=== PATIENT | female | born 1945 | race Caucasian/White ===

== ENCOUNTER 2017-09-16 14:20 | Emergency (ER) | payer MEDICARE, OTHER ==
[2017-09-16 15:45] LABS: Hematocrit 32.9 % (37.0-47.0); Hemoglobin 11.2 gm/dL (12.5-16.0); Mean Cell Volume 94.8 fl (78-100); Mean Corpuscular Hemoglobin 32.3 pg (27-31); Mean Platelet Volume 8.5 fl (6.0-9.5); Neutrophil # 5.4 K/mm3 (1.3-6.0); Neutrophil % 59.7 % (42-75.0); Platelet Count 313 K/mm3 (150-450); Red Blood Count 3.47 M/mm3 (4.2-5.4); Red Cell Distribution Width 13.6 % (11.5-14.0)
[2017-09-16 15:56] LABS: Prothrombin Time (Patient) 9.7 Seconds (9.0-11.0)
[2017-09-16 15:57] LABS: INR 0.97 INR (0.90-1.10)
[2017-09-16 16:03] LABS: ALT 13 U/L (19-67); AST 13 U/L (0-48); Albumin * 3.5 gm/dl (3.4-5.0); Alkaline Phosphatase * 92 U/L (50-170); Anion Gap 12.8 mmol/L (6.8-13.8); BUN/Creatinine Ratio 15.3 (9.0-21.6); Bilirubin, Total 0.3 mg/dL (0.0-1.1); Blood Urea Nitrogen 15 mg/dL (3-23); Ca. Corrected For Albumin 9.2 mg/dL (8.4-10.2); Calcium * 9.1 mg/dL (7.9-10.9); Carbon Dioxide 26.9 mmol/L (24-32.6); Chloride 104 mmol/L (97-106); Glucose * 104 mg/dL (70-110); Lipase 132 U/L (73-393); Potassium 3.7 mmol/L (3.4-4.6); Sodium 140 mmol/L (132-142); Total Protein 7.3 gm/dL (6.2-8.2); Troponin I Less than 0.017 ng/ml (0.00-0.10)
--- NOTE | 2017-09-16 19:02 | ERNOTE ---
Date of Service: 09/16/17 Time Seen by Provider: 09/16/17 15:26 Stated Complaint: COUGHING UP BLOOD Presenting Symptoms:: cough Source: patient Exam Limitations: no limitations Immunizations: IMMUNIZATION HX Immunizations Up to Date Yes History of Influenza Vaccine Yes Hx Pneumococcal Vaccination Yes Allergies/Adverse Reactions: Allergies NSAIDS (Non-Steroidal Anti-Inflamma Allergy (Intermediate, Verified 09/16/17 15: 07) spironolactone Allergy (Intermediate, Verified 09/16/17 15:07) furosemide [From Lasix] Allergy (Verified 09/16/17 15:07) KRISTEN Inhibitors Adverse Reaction (Intermediate, Verified 09/16/17 15:07) Home Medications: HOME MEDICATIONS Acetaminophen 500 mg PO Q4H PRN 09/16/17 [Last Taken Unknown] Azithromycin [Zithromax] 500 mg PO NOW #6 tab 09/16/17 [Last Taken Unknown] Metoprolol Succinate [Toprol Xl] 50 mg PO DAILY 09/16/17 [Last Taken Unknown] Omeprazole 20 mg PO DAILY 09/16/17 [Last Taken Unknown] - History of Present Ilness Narrative: Patient presents to the ED for cough. She has been having increased cough for 2 weeks with change if sputum to thick and yellow and also been coughing up some small amounts of blood with this for 2 weeks. No CP or SOB. She relates she spoke to her Binding Dyer and told her to come here. She tells me she does not like this hospital and did not want to come here. SHe denies acute SOB with this. No acute calf pain or leg swelling. Nothing makes this better or worse. She gets frequent abdominal pains but relates that she has been seen for thiat and that has been going on for a long time, nothing acute here. Timing: other - persistent Severity: mild Modifying Factors - Improves: Reports: nothing Modifying Factors - Worsens: Reports: nothing Associated Symptoms: Reports: cough, other - no nosebleeds. Denies: chest pain/ soreness, shortness of breath, nasal congestion, headache, sore throat Prior Treatment: Denies: recently seen Review of Systems - Review of Systems ENT: Absent: nasal drainage Respiratory: Present: cough Cardiology: Absent: chest pain Gastrointestinal/Abdominal: Present: See HPI Genitourinary: Absent: dysuria Musculoskeletal: Present: other - no DVT Sx Skin: Absent: rash Neurological: Absent: weakness - Patient's Past Medical History Patient History - Medical: Anxiety, Bipolar, Diabetes Type 2, Depression, GERD, Headache, Hypothyroidism, Migraines, Osteoarthritis, Osteoporosis, Renal Disease , Renal Failure, Seizures, UTI'S Patient History - Cardiac/Respiratory: COPD, Hypertension, Hyperlipidemia Patient History - Cancer: Other Patient History - Surgical Procedures: Other Patient History - Other: None - Family History Mother Family History - Medical: Family History - Cardiac/Respiratory: Myocardial Infarction Father Family History - Medical: , History Unknown - Social History Living Situations: home Abuse History: No History of abuse Psych History: Psychiatric Hx, Hx of Anxiety, Hx of Depression, Hx of Bipolar Disorder - Immunizations Immunizations Up to Date: Yes Hx Pneumococcal Vaccination: Yes History of Influenza Vaccine: Yes Physical Exam - Physical Exam General Appearance: Present: alert, no apparent distress, other - speaking in full sentences, occasional cough Head Exam: Present: normal inspection, no evidence of injury Eye Exam: Normal inspection: bilateral, PERRL: bilateral Ears, Nose, Throat: Present: normal ENT inspection. Absent: pharyngeal erythema , dry mucous membranes Neck: Present: normal inspection, nontender Respiratory: Present: no respiratory distress, normal breath sounds, no accessory muscle use, lungs clear Cardiovascular/Chest: Present: regular rate, rhythm, normal peripheral pulses Gastrointestinal/Abdominal: Present: normal bowel sounds, nontender, nondistended, soft Back Exam: Present: normal range of motion Extremity Exam: Present: normal inspection, other - no findings of DVT Neurological Exam: Present: alert, normal mood/affect, no motor/sensory deficits Skin Exam: Present: normal color, warm/dry ED Progress - Results and Orders Patient's Lab Results:: I have reviewed the patient's lab results. - Vital Signs Patient's Vital Signs:: I have reviewed the patient's vital signs. Vital Signs: Vital Signs 09/16/17 09/16/17 09/16/17 14:59 15:35 15:52 Temperature 37.4 C Pulse Rate 94 86 94 Respiratory 18 18 Rate Blood Pressure 217/100 234/100 221/92 O2 Sat by Pulse 98 98 92 Oximetry 09/16/17 09/16/17 09/16/17 16:27 16:56 17:30 Temperature 36.9 C Pulse Rate 96 84 84 Respiratory 19 18 19 Rate Blood Pressure 216/110 182/92 200/101 O2 Sat by Pulse 94 95 96 Oximetry 09/16/17 17:57 Temperature Pulse Rate 82 Respiratory 20 Rate Blood Pressure 213/96 O2 Sat by Pulse 96 Oximetry - EKG EKG: NSR EKG read: Interp. by me EKG Comments: NSR rate 82. RBBB. 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 No clear evidence of STEMI. - X-Ray X-Ray #1 X-Ray: chest Interpretation: Interp. by me X-ray Comments: No acute process. - Progress/Reassessment Chief Complaint: Cough Progress Note-Subjective: 09/16/17 19:[address] chest d/t elevated d-dimer. She understands risks and benefits but refuses this. She understands risk of and missed diagnosis but she still declines CT and requests to leave AMA. AMA form signed by patient. I will place the patient on ABx, but I stressed that she could return at anytime for CT or if she worsened in any way and that she needed to see her doctor tomorrow. I discussed warning signs and reasons to return as well as the need for close f/u. Departure Clinical Impression: Cough, Hemoptysis - Departure Disposition: Against medical advice Condition: Undetermined Additional Instructions: Take antibiotic as directed. Call your doctor tomorrow for an appointment as soon as possible. You are leaving against medical advice, return here if your change your mind about completing your evaluation or if your condition worsens or changes in any way. Prescriptions: Azithromycin [Zithromax] 500 mg PO NOW #6 tab
[2017-09-16 19:22] VITALS: BP 185/90
== END 2017-09-16 19:00 | disposition left against medical advice (07) ==
LOC: ER 14:20
DX: R04.2 Hemoptysis (principal); Z53.29 Procedure and treatment not carried out because of patient's decision for other reasons; K21.9 Gastro-esophageal reflux disease without esophagitis; I10 Essential (primary) hypertension; Z87.440 Personal history of urinary (tract) infections

== ENCOUNTER 2017-09-17 20:22 | Emergency (ER) | payer MEDICARE, OTHER ==
[2017-09-17] MEDS ORDERED: predniSONE 20 MG TABLET ONE (23:49)
[2017-09-17] MEDS ORDERED: predniSONE 20 MG TABLET PO ONE (23:53)
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
[2017-09-18 01:45] VITALS: BP 168/80
== END 2017-09-18 00:28 | disposition home or self-care (01) ==
LOC: ER 20:22
DX: J44.1 Chronic obstructive pulmonary disease with (acute) exacerbation (principal); Z03.89 Encounter for observation for other suspected diseases and conditions ruled out; V48.1XXA Car passenger injured in noncollision transport accident in nontraffic accident, initial encounter; Y93.89 Activity, other specified; Y92.410 Unspecified street and highway as the place of occurrence of the external cause; I10 Essential (primary) hypertension; E78.5 Hyperlipidemia, unspecified

== ENCOUNTER 2017-11-18 11:23 | Emergency (ER) | payer MEDICARE, MEDICAID ==
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
[2017-11-18 12:05] LABS: Hematocrit 35.2 % (37.0-47.0); Hemoglobin 12.1 gm/dL (12.5-16.0); Mean Cell Volume 92.6 fl (78-100); Mean Corpuscular Hemoglobin 31.8 pg (27-31); Mean Corpuscular Hgb Conc 34.4 g/dl (32-36); Mean Platelet Volume 9.1 fl (6.0-9.5); Neutrophil # 5.3 K/mm3 (1.3-6.0); Neutrophil % 65.2 % (42-75.0); Platelet Count 251 K/mm3 (150-450); Red Cell Distribution Width 12.3 % (11.5-14.0); White Blood Count 8.1 K/mm3 (4.0-10.5)
[2017-11-18 12:25] LABS: ALT 13 U/L (19-67); AST 10 U/L (0-48); Alkaline Phosphatase * 117 U/L (50-170); Anion Gap 11.9 mmol/L (6.8-13.8); BUN/Creatinine Ratio 16.5 (9.0-21.6); Bilirubin, Total 0.4 mg/dL (0.0-1.1); Blood Urea Nitrogen 16 mg/dL (3-23); Ca. Corrected For Albumin 9.7 mg/dL (8.4-10.2); Calcium * 9.2 mg/dL (7.9-10.9); Carbon Dioxide 25.7 mmol/L (24-32.6); Chloride 105 mmol/L (97-106); Glucose * 107 mg/dL (70-110); Potassium 4.6 mmol/L (3.4-4.6); Sodium 138 mmol/L (132-142); Total Protein 6.7 gm/dL (6.2-8.2); Troponin I Less than 0.017 ng/ml (0.00-0.10)
[2017-11-18] MEDS ORDERED: AZITHROMYCIN 250 MG TABLET PO ONE (12:30)
[2017-11-18] MEDS ORDERED: AZITHROMYCIN 250 MG TABLET ONE (12:34)
[2017-11-18 12:36] LABS: Urine Bilirubin Negative (NEGATIVE); Urine Ketone Negative (NEGATIVE); Urine Nitrite Negative (NEGATIVE); Urine Protein 100 mg/dL (NEGATIVE); Urine Urobilinogen Normal (NORMAL); Urine pH 6.5 pH (5.0-7.0)
[2017-11-18] MEDS ORDERED: cefTRIAXone SODIUM 1,000 MG in DEXTROSE 5 % IN WATER 50 ML IV ONE ×2 (12:45)
[2017-11-18 12:54] LABS: Urine Appearance Slightly Cloudy; Urine Bacteria 1+; Urine Blood 5 /ul (NEGATIVE); Urine Color Yellow; Urine RBC 0-5 /hpf (0-5); Urine WBC None Seen /hpf (0-5)
[2017-11-18 13:38] VITALS: BP 163/80
== END 2017-11-18 13:51 | disposition home or self-care (01) ==
LOC: ER 11:23
DX: J18.1 Lobar pneumonia, unspecified organism (principal); F17.210 Nicotine dependence, cigarettes, uncomplicated; E03.9 Hypothyroidism, unspecified; Z87.440 Personal history of urinary (tract) infections; I10 Essential (primary) hypertension; J44.9 Chronic obstructive pulmonary disease, unspecified

== ENCOUNTER 2017-11-30 13:18 | Emergency (ER) | payer MEDICARE, MEDICAID ==
[2017-11-30 13:49] LABS: Hematocrit 37.9 % (37.0-47.0); Hemoglobin 13.1 gm/dL (12.5-16.0); Mean Cell Volume 90.9 fl (78-100); Mean Corpuscular Hemoglobin 31.4 pg (27-31); Mean Corpuscular Hgb Conc 34.6 g/dl (32-36); Mean Platelet Volume 9.8 fl (6.0-9.5); Neutrophil # 9.2 K/mm3 (1.3-6.0); Neutrophil % 66.8 % (42-75.0); Platelet Count 321 K/mm3 (150-450); Red Blood Count 4.17 M/mm3 (4.2-5.4); Red Cell Distribution Width 12.1 % (11.5-14.0); White Blood Count 13.8 K/mm3 (4.0-10.5)
[2017-11-30] MEDS ORDERED: ALBUTEROL SULFATE/IPRATROPIUM 3 ML NEBU IH ONE (13:56)
[2017-11-30] MEDS ORDERED: METHYLPREDNISOLONE SOD SUCC/PF 40 MG/ML VIAL ONE (13:56)
[2017-11-30] MEDS: METHYLPREDNISOLONE SOD SUCC/PF 40 MG/ML VIAL IV ONE (13:57)
[2017-11-30] MEDS: ALBUTEROL SULFATE/IPRATROPIUM 3 ML NEBU IH ONE (13:58)
[2017-11-30 14:11] LABS: Urine Bilirubin Negative (NEGATIVE); Urine Ketone Negative (NEGATIVE); Urine Nitrite Negative (NEGATIVE); Urine Protein 30 mg/dL (NEGATIVE); Urine Urobilinogen Normal (NORMAL)
[2017-11-30 14:14] LABS: ALT 19 U/L (19-67); AST 13 U/L (0-48); Albumin * 2.9 gm/dl (3.4-5.0); Alkaline Phosphatase * 88 U/L (50-170); Anion Gap 9.9 mmol/L (6.8-13.8); BUN/Creatinine Ratio 19.8 (9.0-21.6); Bilirubin, Total 0.4 mg/dL (0.0-1.1); Blood Urea Nitrogen 20 mg/dL (3-23); Ca. Corrected For Albumin 9.5 mg/dL (8.4-10.2); Calcium * 8.9 mg/dL (7.9-10.9); Carbon Dioxide 27.8 mmol/L (24-32.6); Chloride 102 mmol/L (97-106); Glucose * 100 mg/dL (70-110); Magnesium 1.5 mg/dL (1.2-2.8); Potassium 3.7 mmol/L (3.4-4.6); Sodium 136 mmol/L (132-142); Total Protein 6.5 gm/dL (6.2-8.2); Troponin I Less than 0.017 ng/ml (0.00-0.10)
[2017-11-30 14:20] LABS: Urine Amorphous Sediment Few - 1+ (NONE-FEW); Urine Appearance Clear; Urine Bacteria 1+; Urine Blood 5 /ul (NEGATIVE); Urine Color Pale Yellow; Urine RBC 0-5 /hpf (0-5); Urine WBC None Seen /hpf (0-5)
--- NOTE | 2017-11-30 14:54 | ERNOTE ---
Medical Problem HPI - General Chief Complaint: General Assessment Time Seen by Provider: 11/30/17 13:28 Source: patient, EMS Exam Limitations: no limitations - Immun/Allergies/Home Medications Immunizations: IMMUNIZATION HX Immunizations Up to Date Yes History of Influenza Vaccine Yes Hx Pneumococcal Vaccination Yes Allergies/Adverse Reactions: Allergies NSAIDS (Non-Steroidal Anti-Inflamma Allergy (Intermediate, Verified 11/18/17 11: 38) spironolactone Allergy (Intermediate, Verified 11/18/17 11:38) furosemide [From Lasix] Allergy (Verified 11/18/17 11:38) KRISTEN Inhibitors Adverse Reaction (Intermediate, Verified 11/18/17 11:38) Home Medications: HOME MEDICATIONS Acetaminophen 650 mg PO QID PRN 09/16/17 [Last Taken Unknown] Albuterol Sulfate [Albuterol Sulfate 2.5 MG/3 ML] 2.5 mg IH Q4H 11/18/17 [Last Taken Unknown] Allopurinol [Zyloprim (Allopurinol)] 100 mg PO DAILY 11/18/17 [Last Taken Unknown] Aspirin 325 mg PO TID 11/18/17 [Last Taken Unknown] Atorvastatin Calcium [Lipitor] 80 mg PO DAILY 11/18/17 [Last Taken Unknown] Azithromycin [Zithromax] 250 mg PO DAILY #4 tablet 11/18/17 [Last Taken Unknown] Bupropion HCl [Wellbutrin Sr] 100 mg PO BID 11/18/17 [Last Taken Unknown] Calcium Carbonate [Calcium] 500 mg PO QID 11/18/17 [Last Taken Unknown] Cyanocobalamin (Vitamin B-12) [Vitamin B-12] 1,000 mcg PO DAILY 11/18/17 [Last Taken Unknown] Divalproex Sodium [Depakote ER] 250 mg PO HS 11/18/17 [Last Taken Unknown] Docusate Sodium [Colace] 100 mg PO BID 11/18/17 [Last Taken Unknown] Ferrous Sulfate [Iron] 325 mg PO BID 11/18/17 [Last Taken Unknown] Levothyroxine Sodium [Tirosint] 100 mcg PO DAILY 11/18/17 [Last Taken Unknown] Losartan Potassium [Cozaar] 100 mg PO DAILY 11/18/17 [Last Taken Unknown] Metoprolol Succinate [Toprol Xl] 100 mg PO DAILY 11/18/17 [Last Taken Unknown] Montelukast Sodium [Singulair] 10 mg PO DAILY 11/18/17 [Last Taken Unknown] Nitroglycerin [Nitrostat] 0.4 mg SL Q5MIN PRN 11/18/17 [Last Taken Unknown] OLANZapine [Zyprexa] 2.5 mg PO HS 11/18/17 [Last Taken Unknown] Pantoprazole Sodium [Protonix] 40 mg PO DAILY 11/18/17 [Last Taken Unknown] Ranitidine HCl [Zantac] 300 mg PO HS 11/18/17 [Last Taken Unknown] Solifenacin Succinate [Vesicare] 5 mg PO DAILY 11/18/17 [Last Taken Unknown] Thiamine HCl [Vitamin B-1] 100 mg PO DAILY 11/18/17 [Last Taken Unknown] Tiotropium [place] [Spiriva] 18 mcg IH DAILY 11/18/17 [Last Taken Unknown] Topiramate [Trokendi Xr] 50 mg PO BID 11/18/17 [Last Taken Unknown] Venlafaxine HCl [Venlafaxine HCl ER] 37.5 mg PO TID 11/18/17 [Last Taken Unknown ] rOPINIRole HCL [Requip] 0.5 mg PO HS 11/18/17 [Last Taken Unknown] traZODone HCL [Trazodone HCl] 150 mg PO HS 11/18/17 [Last Taken Unknown] - History of Present History Narrative: Patient was brought in by the ambulance service because the family was afraid that perhaps her COPD he had kicked up. While the patient did have some wheezing and coarse breath sounds, she is currently on antibiotics and steroids as well as regular breathing treatments for COPD after having just been discharged from [facility]. Timing: constant Severity: mild Review of Systems - Review of Systems Constitutional: Present: See HPI EYE: Present: no symptoms reported ENT: Present: no symptoms reported Respiratory: Present: See HPI Cardiology: Present: no symptoms reported Gastrointestinal/Abdominal: Present: no symptoms reported Genitourinary: Present: no symptoms reported Musculoskeletal: Present: no symptoms reported Skin: Present: no symptoms reported Neurological: Present: no symptoms reported Endocrine: Present: no symptoms reported Hematologic/Lymphatic: Present: no symptoms reported Psych: Present: no symptoms reported - Patient's Past Medical History Patient History - Medical: Anxiety, Bipolar, Diabetes Type 2, Depression, GERD, Headache, Hypothyroidism, Migraines, Osteoarthritis, Osteoporosis, Renal Disease , Renal Failure, Seizures, UTI'S Patient History - Cardiac/Respiratory: COPD, Hypertension, Hyperlipidemia Patient History - Cancer: Other Patient History - Surgical Procedures: Other Patient History - Other: None - Family History Mother Family History - Medical: Family History - Cardiac/Respiratory: Myocardial Infarction Family History - Cancer: Breast, Colon Father Family History - Medical: , History Unknown Family History - Cardiac/Respiratory: No pertinent hx Family History - Cancer: No pertinent family hx - Social History Living Situations: home Abuse History: No History of abuse Psych History: Psychiatric Hx, Hx of Anxiety, Hx of Depression, Hx of Bipolar Disorder - Immunizations Immunizations Up to Date: Yes Hx Pneumococcal Vaccination: Yes History of Influenza Vaccine: Yes Physical Exam - Physical Exam General Appearance: Present: wd/wn, alert, mild distress Head Exam: Present: normal inspection, no evidence of injury Eye Exam: Normal inspection: bilateral, PERRL: bilateral Ears, Nose, Throat: Present: normal ENT inspection, H, normal pharynx Neck: Present: normal inspection, nontender Respiratory: Present: no accessory muscle use, chest nontender, wheezing, other - fine course breath sounds Cardiovascular/Chest: Present: regular rate, rhythm, no murmur, normal peripheral pulses Gastrointestinal/Abdominal: Present: normal bowel sounds, nontender, nondistended, soft, no organomegaly Rectal Exam: Present: deferred Back Exam: Present: normal inspection, normal range of motion Extremity Exam: Present: normal inspection, non-tender, no edema, normal range of motion Neurological Exam: Present: alert, oriented, normal mood/affect Skin Exam: Present: normal color, warm/dry Lymphatic Exam: Present: no adenopathy ED Progress - Results and Orders Patient's Lab Results:: I have reviewed the patient's lab results. - Vital Signs Patient's Vital Signs:: I have reviewed the patient's vital signs. Vital Signs: Vital Signs 11/30/17 11/30/17 13:18 13:58 Temperature 36.9 C Pulse Rate 65 65 Respiratory 9 L 16 Rate Blood Pressure 162/104 O2 Sat by Pulse 96 100 Oximetry - EKG EKG: NSR, RBBB EKG read: Reviewed by me - X-Ray X-Ray #1 X-Ray: chest Interpretation: Reviewed by me - Progress/Reassessment Chief Complaint: General Assessment Progress:: Improved Plan - Plan Plan: Patient was improved after breathing treatment and IV steroids. Patient is currently under a fairly rigorous home treatment plan and she needs to make sure that she continues that regimen at home. Departure Clinical Impression: COPD (chronic obstructive pulmonary disease) Qualifiers: COPD type: COPD with acute exacerbation Qualified Code(s): J44.1 - Chronic obstructive pulmonary disease with (acute) exacerbation - Departure Disposition: Home self-care Condition: Good Instructions: Chronic Obstructive Pulmonary Disease, [id number] Additional Instructions: Make sure he take her antibiotics at home, steroids as well and continue doing her breathing treatments every 4 hours while awake. Call your family doctor for appointment.
[2017-11-30 15:15] VITALS: BP 188/94
== END 2017-11-30 14:55 | disposition home or self-care (01) ==
LOC: ER 13:18
DX: J44.1 Chronic obstructive pulmonary disease with (acute) exacerbation (principal); E11.9 Type 2 diabetes mellitus without complications; K21.9 Gastro-esophageal reflux disease without esophagitis; E03.9 Hypothyroidism, unspecified; M19.90 Unspecified osteoarthritis, unspecified site; M81.0 Age-related osteoporosis without current pathological fracture; I10 Essential (primary) hypertension; E78.5 Hyperlipidemia, unspecified; I51.7 Cardiomegaly; J90 Pleural effusion, not elsewhere classified

== ENCOUNTER 2017-12-05 09:14 | Emergency (ER) | payer MEDICARE, MEDICAID ==
--- NOTE | 2017-12-05 10:19 | ERNOTE ---
Lower Extremity HPI - Narrative Date of Service: 12/05/17 - General Lower Extremities Pain: leg: right Time Seen by Provider: 12/05/17 10:09 Source: patient, EMS, RN notes reviewed Exam Limitations: clinical condition - Immun/Allergies/Home Medications Immunizations: IMMUNIZATION HX Immunizations Up to Date Yes History of Influenza Vaccine Yes Hx Pneumococcal Vaccination Yes Allergies/Adverse Reactions: Allergies Allergy/AdvReac Type Severity Reaction Status Date / Time NSAIDS (Non-Steroidal Allergy Intermediate Verified 12/05/17 09:21 Anti-Inflamma spironolactone Allergy Intermediate Verified 12/05/17 09:21 furosemide [From Lasix] Allergy Verified 12/05/17 09:21 KRISTEN Inhibitors AdvReac Intermediate Verified 12/05/17 09:21 Home Medications: HOME MEDICATIONS Albuterol Sulfate [Albuterol Sulfate 2.5 MG/3 ML] 2.5 mg IH Q4H 11/18/17 [Last Taken Unknown] Docusate Sodium [Colace] 100 mg PO BID 11/18/17 [Last Taken Unknown] Levothyroxine Sodium [Tirosint] 100 mcg PO DAILY 11/18/17 [Last Taken Unknown] Metoprolol Succinate [Toprol Xl] 100 mg PO DAILY 11/18/17 [Last Taken Unknown] rOPINIRole HCL [Requip] 0.25 mg PO HS 11/18/17 [Last Taken Unknown] - History of Present Illness Narrative: Gustavo is a 72 year old female brought to the ED by EMS for a fall that occurred earlier this morning. She was found in her bed by her family and was complaining of right leg pain. She was seen here on 11/18/17 and diagnosed with pneumonia. She was treated with Zithromax as an outpatient. She was then admitted to [facility] on 11/24/17 for failed outpatient treatment. She was given IV Levaquin and Zosyn in the hospital. She was discharged on Augmentin, Levaquin and a prednisone taper. She is not sure if she is still on these medications. She was then seen here on 11/30/17 for a possible COPD exacerbation. No acute changes were found in her work-up at that time. She is unsure what happened this morning. On initial exam, she is reporting pain "everywhere." She does report that she felt the same as usual yesterday. She states that she is currently hungry and would like mashed potatoes and gravy. Her blood pressure is quite elevated, but she has not taken any of her routine medications this morning. Occurred: this morning Location of Incident: home Method of Injury: Reports: unknown Reason for Fall: Reports: unknown Loss of Consciousness: Reports: unsure Associated Symptoms: Denies: unable to bear weight, snapping, popping sensation , headache, weakness, sensory loss, chest pain, vomiting/diarrhea, bowel/ bladder problems Other Injuries: Reports: none Prior Treament: Reports: recently seen, treated by physician, recently hospitalized, similar symptoms before Review of Systems - Review of Systems Constitutional: Present: recent illness, fatigue, malaise. Absent: fever EYE: Absent: eye pain, vision changes ENT: Absent: nose congestion, sore throat Respiratory: Present: cough. Absent: shortness of breath, orthopnea, wheezing Cardiology: Absent: chest pain, edema Gastrointestinal/Abdominal: Absent: nausea, vomiting, diarrhea, abdominal pain Genitourinary: Absent: frequency, dysuria Musculoskeletal: Present: muscle pain, joint swelling. Absent: neck pain Skin: Absent: rash, lesions, lumps Neurological: Absent: headache, weakness, numbness, tingling Endocrine: Present: no symptoms reported Hematologic/Lymphatic: Present: easy bruising, easy bleeding Psych: Present: anxiety, depressed - Patient's Past Medical History Patient History - Medical: Anxiety, Bipolar, Chronic Pain, Diabetes Type 2, Depression, GERD, Headache, Hypothyroidism, Migraines, Osteoarthritis, Osteoporosis, Renal Disease, Renal Failure, Seizures, UTI'S Patient History - Cardiac/Respiratory: COPD, Hypertension, Hyperlipidemia, Myocardial Infarction, Home O2 Use, Sleep Apnea Patient History - Cancer: Skin - Squamous cell - tongue Patient History - Surgical Procedures: Amputation - Left great toe - lawnmower accident, Cholecystectomy, Colonoscopy, Hysterectomy, ENT - Skin cancer, tongue , Orthopedic Patient History - Other: None LMP (females 10-50): Menopausal - Family History Mother Family History - Medical: Family History - Cardiac/Respiratory: Myocardial Infarction Family History - Cancer: Breast, Colon Father Family History - Medical: , History Unknown Family History - Cardiac/Respiratory: No pertinent hx Family History - Cancer: No pertinent family hx - Social History Living Situations: home - Lives with sone Abuse History: No History of abuse Psych History: Psychiatric Hx, Hx of Anxiety, Hx of Depression, Hx of Bipolar Disorder, Current tx/ever been on anti-depressants or anti-anxiety meds Smoking Status: Current every day smoker Have you smoked in the past 12 months: Yes - rolls own cigarettes Patient requests Smoking Cessation Consult: No Alcohol Use: sober - former alcoholic Drug Use: none - Immunizations Immunizations Up to Date: Yes Hx Pneumococcal Vaccination: Yes History of Influenza Vaccine: Yes Physical Exam - Physical Exam General Appearance: Present: alert, mild distress, thin, other - Frail, chronically ill appearing, disheveled Head Exam: Present: normal inspection, no evidence of injury Eye Exam: Normal inspection: bilateral, PERRL: bilateral Ears, Nose, Throat: Present: normal ENT inspection, normal pharynx Neck: Present: normal inspection, nontender, supple, full range of motion Respiratory: Present: no respiratory distress, no accessory muscle use, expiration (prolonged), rhonchi, wheezing Cardiovascular/Chest: Present: regular rate, rhythm, no murmur, normal peripheral pulses Peripheral Pulses: N=norm/S=strong/W=weak/B=bound/A=absent: Dorsalis-pedis (R): Normal, Dorsalis-pedis (L): Normal Gastrointestinal/Abdominal: Present: normal bowel sounds, nontender, nondistended, soft Back Exam: Present: normal inspection, no vertebral tenderness Extremity Exam: Present: normal inspection, non-tender, normal range of motion, no edema Neurological Exam: Present: alert, no motor/sensory deficits, disoriented to situation, other - depressed appearing. Absent: normal mood/affect Skin Exam: Present: normal color, warm/dry ED Progress - Results and Orders Patient's Lab Results:: I have reviewed the patient's lab results. - Vital Signs Patient's Vital Signs:: I have reviewed the patient's vital signs. Vital Signs: Vital Signs 12/05/17 12/05/17 12/05/17 09:15 09:22 09:38 Temperature 35.9 C L Pulse Rate 85 82 76 Respiratory 12 12 16 Rate Blood Pressure 217/112 O2 Sat by Pulse 97 100 94 Oximetry 12/05/17 09:53 Temperature Pulse Rate 86 Respiratory 12 Rate Blood Pressure 194/108 O2 Sat by Pulse 94 Oximetry - EKG EKG: NSR, RBBB, unchanged from 11/30/17 EKG read: Reviewed by me - X-Ray X-Ray #1 X-Ray: chest Interpretation: Reviewed by me X-ray Comments: No acute cardiopulmonary findings - Progress/Reassessment Chief Complaint: Lower Extremity Pain/ Injury Progress:: Unchanged Progress Note-Subjective: 12/05/17 10:49 Patient initially reported that she was unable to walk but did ambulate to the bathroom with a walker and minimal assist of 1. She told the nurse that she wants to go to the senior care and said "don't send me home." Plan - Plan Plan: The patient wishes to go to the senior care as she is having difficulty caring for herself at home despite having home health. She lives with her son but states that he is not very helpful. At the present time, there is no acute process that would require hospitalization and subsequently then senior care placement. Instructed to contact her PCP's office tomorrow regarding the issue. The patient is upset but in agreement with the plan. Departure Clinical Impression: Falls Qualifiers: Encounter type: initial encounter Qualified Code(s): W19.XXXA - Unspecified fall, initial encounter COPD (chronic obstructive pulmonary disease) Qualifiers: COPD type: unspecified COPD Qualified Code(s): J44.9 - Chronic obstructive pulmonary disease, unspecified - Departure Disposition: Home Follow Up Needed Condition: Fair Instructions: Fall Prevention in the Home Additional Instructions: Continue your current medications Contact Radha Bryson's office tomorrow and let them know you are ready to go to a senior care
[2017-12-05 10:23] LABS: Hematocrit 36.5 % (37.0-47.0); Hemoglobin 12.6 gm/dL (12.5-16.0); Mean Cell Volume 90.3 fl (78-100); Mean Corpuscular Hemoglobin 31.2 pg (27-31); Mean Corpuscular Hgb Conc 34.5 g/dl (32-36); Mean Platelet Volume 9.8 fl (6.0-9.5); Neutrophil # 7.4 K/mm3 (1.3-6.0); Neutrophil % 69.2 % (42-75.0); Platelet Count 289 K/mm3 (150-450); Red Blood Count 4.04 M/mm3 (4.2-5.4); White Blood Count 10.7 K/mm3 (4.0-10.5)
[2017-12-05] MEDS ORDERED: METOPROLOL TARTRATE 100 MG TABLET PO ONE (10:32)
[2017-12-05 10:39] LABS: ALT 13 U/L (19-67); AST 12 U/L (0-48); Albumin * 3.2 gm/dl (3.4-5.0); Alkaline Phosphatase * 93 U/L (50-170); Anion Gap 5.5 mmol/L (6.8-13.8); BUN/Creatinine Ratio 15.3 (9.0-21.6); Bilirubin, Total 0.5 mg/dL (0.0-1.1); Blood Urea Nitrogen 15 mg/dL (3-23); Ca. Corrected For Albumin 9.5 mg/dL (8.4-10.2); Calcium * 9.2 mg/dL (7.9-10.9); Carbon Dioxide 29.8 mmol/L (24-32.6); Chloride 104 mmol/L (97-106); Glucose * 95 mg/dL (70-110); Potassium 4.3 mmol/L (3.4-4.6); Sodium 135 mmol/L (132-142); Total Protein 6.9 gm/dL (6.2-8.2); Troponin I Less than 0.017 ng/ml (0.00-0.10)
[2017-12-05] MEDS ORDERED: ACETAMINOPHEN 325 MG TABLET PO ONE (10:40)
[2017-12-05] MEDS ORDERED: LOSARTAN POTASSIUM 50 MG TABLET PO ONE (10:45)
[2017-12-05 10:54] LABS: Urine Bilirubin Negative (NEGATIVE); Urine Ketone 5 mg/dL (NEGATIVE); Urine Nitrite Negative (NEGATIVE); Urine Protein 100 mg/dL (NEGATIVE); Urine Specific Gravity 1.025 SP.GR. (1.005-1.010); Urine Urobilinogen Normal (NORMAL); Urine pH 6.5 pH (5.0-7.0)
[2017-12-05 11:01] LABS: Urine Appearance Clear; Urine Bacteria None Seen; Urine Blood 5 /ul (NEGATIVE); Urine Color Yellow; Urine RBC 0-5 /hpf (0-5); Urine WBC None Seen /hpf (0-5)
[2017-12-05] MEDS ORDERED: METOPROLOL TARTRATE 100 MG TABLET ONE (11:07)
[2017-12-05 11:08] LABS: Cocaine Ur Negative (NEGATIVE); Urine Barbiturate Negative (NEGATIVE); Urine Benzodiazepines Negative (NEGATIVE); Urine Opiates Negative (NEGATIVE); Urine PCP Negative (NEGATIVE); Urine THC Negative (NEGATIVE)
[2017-12-05] MEDS ORDERED: ACETAMINOPHEN 325 MG TABLET ONE (11:08)
[2017-12-05 13:21] VITALS: BP 139/70
== END 2017-12-05 13:49 | disposition home or self-care (01) ==
LOC: ER 09:14
DX: J44.9 Chronic obstructive pulmonary disease, unspecified (principal); M79.604 Pain in right leg; E03.9 Hypothyroidism, unspecified; I10 Essential (primary) hypertension; I25.2 Old myocardial infarction; K21.9 Gastro-esophageal reflux disease without esophagitis; Z87.440 Personal history of urinary (tract) infections; Z85.828 Personal history of other malignant neoplasm of skin; F17.200 Nicotine dependence, unspecified, uncomplicated; W19.XXXA Unspecified fall, initial encounter; Y92.009 Unspecified place in unspecified non-institutional (private) residence as the place of occurrence of the external cause